=== PATIENT | female | born 1985 | race Caucasian/White ===

== ENCOUNTER → 2024-05-14 10:12 | Outpatient (REF) | payer OTHER, SELFPAY | LOC: RAD 10:12 | PROVIDERS: ATTENDING PHYSICIAN Nurse Practitioner Adult Health; FAMILY PHYSICIAN Family Medicine | DX: R10.2 Pelvic and perineal pain (principal) | CPT/HCPCS: 76830; 76856 ==

== ENCOUNTER → 2024-05-16 08:15 | Outpatient (REF) | payer OTHER, SELFPAY | LOC: WDC 08:15 | PROVIDERS: ATTENDING PHYSICIAN Nurse Practitioner Adult Health; FAMILY PHYSICIAN Family Medicine | DX: Z12.31 Encounter for screening mammogram for malignant neoplasm of breast (principal) | CPT/HCPCS: 77063; 77067 ==

== ENCOUNTER → 2024-05-22 07:37 | Outpatient (REF) | payer OTHER, SELFPAY | LOC: WDC 07:37 | PROVIDERS: ATTENDING PHYSICIAN Nurse Practitioner Adult Health; FAMILY PHYSICIAN Family Medicine | DX: R92.8 Other abnormal and inconclusive findings on diagnostic imaging of breast (principal) | CPT/HCPCS: 76642 ==

== ENCOUNTER 2024-08-06 09:42 | Emergency (ER) | payer OTHER, SELFPAY ==
[2024-08-06 09:47] VITALS: BP 130/80
[2024-08-06 10:42] LABS: Urine Albumin Negative (Neg - Trace); Urine Bilirubin Negative (Negative); Urine Character Clear (Clear); Urine Color Yellow; Urine Glucose Negative (Negative); Urine Ketone Negative (Negative); Urine Leukocyte Negative (Negative); Urine Nitrite Negative (Negative); Urine Occult Blood 3+ (Negative); Urine Urobilinogen Negative (Neg - 1+)
[2024-08-06 10:47] LABS: Urine Squamous Cell 0-2 /LPF (Few); Urine White Cell 0-2 /HPF (0-5)
[2024-08-06 10:48] LABS: HCG, Urine Qualitative Screen Negative
--- NOTE | 2024-08-06 11:05 | ED.GENMED ---
History of Present Illness
General
Chief Complaint: Abdominal Pain
Source: patient
Exam Limitations: none
Time Seen by Provider: 08/06/24 10:45
History of Present Illness
History of Present Illness:
38-year-old female presents complaining of severe fairly sudden lower abdominal/pelvic pain that started this morning upon awakening. She had a similar episode at the beginning of this month that lasted 15 minutes and went away. Today the pain was
so severe she tried to go to the bath and had a syncopal episode. Her noticed this and found her clammy and sweaty and pale. She states since then the pelvic pain has improved. She also notes she has not had a bowel movement in 3 to 4
days. She typically goes about twice a week. Of note, patient had an ultrasound in May of this year which showed a 4.7 cm left-sided ovarian cyst. She did follow-up with gynecology they said no further testing was indicated at this point. Last
menstrual cycle was 3 weeks ago. No other complaints at this time
Past History
Past History
ED Past Medical History: None
ED Past Surgical History: None
Social History
Personal: Single
Living: with family
Employment: Employed
Phy Exam
Physical Exam
Physical Exam:
General: Well-appearing female no acute respiratory distress
HEENT: Normocephalic atraumatic
Heart: Regular rate and rhythm no murmurs
Lungs: Clear no wheeze
Abdomen is soft mildly tender to the suprapubic region no guarding or rebound normal bowel sounds no costovertebral angle tenderness
Extremities: No cyanosis
Course
Orders/Labs/Results
Orders:
Orders
08/06/24 09:53
Electrocardiogram (*1) Urgent
Reason for Study: Syncope
EKG- Treatment ONCE
08/06/24 10:07
Test Result ONCE
08/06/24 10:23
, Urine Qualitative Screen [HCG, Urine Qualitative Screen] Urgent
Date Specimen was Collected: 08/06/24
Time Specimen was Collected: 10:07
Urinalysis Reflex To Culture Urgent
Date Specimen was Collected: 08/06/24
Time Specimen was Collected: 10:07
Urine Microscopic Reflex Cult Urgent
08/06/24 10:59
US Pelvis Only (non-obstetric) Urgent
Reason For Exam: pelvic pain
08/06/24 11:42
CT Abd/pel W Iv And Oral Contr Urgent
Comment:
Reason For Exam: lower abdominal/pelvic pain
Iohexol [Omnipaque] See Protocol PO NOW STA
08/06/24 11:49
Complete Blood Count/With Diff Urgent
08/06/24 12:55
Basic Metabolic Panel Urgent
08/06/24 15:29
Ketorolac [Toradol] 15 mg IV NOW STA
Abnormal Lab Results
08/06/24 08/06/24
10:23 12:55
Carbon Dioxide 20 L mmol/L
(22-30)
Ur Occult Blood Reflex 3+ A
(Negative)
Urine RBC 11-15 A /HPF
(0-2)
08/06/24 11:49
08/06/24 12:55
Vital Signs
Initial and Last Documented VS:
Initial Vital Signs
Temp Pulse Resp BP Pulse Ox
98.7 F 103 18 130/80 99
08/06/24 09:47 08/06/24 09:47 08/06/24 09:47 08/06/24 09:47 08/06/24 09:47
Last Documented Vital Signs
Temp Pulse Resp BP Pulse Ox
98.7 F 103 18 126/86 99
08/06/24 09:47 08/06/24 09:47 08/06/24 09:47 08/06/24 11:50 08/06/24 11:51
MDM/Problems Addressed
Differential Diagnosis Includes:
Lower abdominal/pelvic pain. There is no discharge. She is monogamous with her . Do not sexually-transmitted infection. Reviewed prior imaging studies which demonstrate a left sided ovarian cyst seen on an ultrasound in May. This
measured 4.7 cm. Concern for possible enlarging cyst or torsion given the nature of discomfort. Ultrasound pending. Will check labs and urine. If ultrasound negative or CT.
*Critical Care Note
Total Time (30-74mins, 75-104mins- exclusive of procedures): Not Applicable
Update Note
Update Note:
Ultrasound demonstrated resolution of left-sided ovarian cyst but there is a 2 cm right-sided ovarian cyst. Patient had another episode of pain after voiding and ultrasound. The pain lasted around 15 minutes and went away again. CT scan was then
ordered with oral and IV contrast. This was reviewed. There is no obvious acute finding noted on CT scan. Differential could include recently passed kidney stone versus constipation versus cystitis. There is hematuria but no obvious nitrites or
leukocytes. Patient somewhat disappointed with lack of answers however she was reassured. Recommend follow-up with gynecology
ED Attending Note
-
Portions of this chart may have been created with voice recognition software.� Occasional wrong word or��sound alike� substitutions may have occurred due to the inherent limitations of voice recognition software.
Discharge Plan
Departure
Patient Disposition: Home (Routine Discharge)
Date of Disposition: 08/06/24
Time of Disposition: 15:44
Patient with high blood pressure during this ER visit?: No
Discharge Problem:
Abdominal pain
Instructions: Abdominal Pain
Prescriptions:
No Action
norethindrone-e.estradiol-iron [] 1 EACH tablet
1 ea PO DAILY
diphenoxylate-atropine [Lomotil] 2.5-0.025 mg tablet
2 tab PO TID PRN (Reason: diarrhea) Qty: 20 0RF
Rx Instructions:
Maximum of 8mg tablets per day
Referrals:
Kike Zuniga DO [Family Provider] -
Activity Restrictions/Additional Instructions:
Stay hydrated. Use Tylenol or ibuprofen for pain. Consider using MiraLAX if you are constipated. Follow-up with gynecology.
Interventions
Interventions:
*Risk Screen - Suicide Last Done: 08/06/24 09:47
*General Assessment Last Done: 08/06/24 09:47
*Neglect/Abuse Screening Last Done: 08/06/24 09:47
ED- Fall Risk Assessment Last Done: 08/06/24 10:33
*ED COVID-19 Vaccine History Last Done: 08/06/24 10:33
WW-Jmyrxq-Infzveiers Assessment Last Done: 08/06/24 10:58
Discharge Date and Time
Print Language: MALAWIAN
[2024-08-06] MEDS: OMNIPAQUE 50 ML PO (11:49)
[2024-08-06 11:50] VITALS: BP 126/86
[2024-08-06 12:12] LABS: % Basophils 0.7 % (0-2); % Eosinophils 0.2 % (0-6); % Immature Granulocytes 0.2 % (0-0.5); % Lymphocytes 23.5 % (20.5-51.1); % Monocytes 5.6 % (1.7-9.3); % Neutrophils 69.8 % (42.2-75.2); Absolute Basophils 0.1 10^3/uL (0-0.2); Absolute Lymphocytes 1.9 10^3/uL (1.2-3.4); Absolute Monocytes 0.5 10^3/uL (0.1-0.6); Absolute Neutrophils 5.7 10^3/uL (1.4-6.5); Hematocrit 44.1 % (37.0-47.0); Hemoglobin 14.8 g/dL (12.0-16.0); Mean Corp Hgb Conc. 33.6 g/dL (33.0-37.0); Mean Corpuscular Hgb 29.7 pg (27.0-31.0); Mean Corpuscular Volume 88.6 fL (81.0-99.0); Mean Platelet Volume 10.2 fL (7.4-10.4); Nucleated Red Blood Cells % 0 %; Platelet Count 240 10^3/uL (130-400); Red Blood Cell Count 4.98 10^6/uL (4.20-5.40); Red Cell Dist. Width 14.1 % (11.5-14.5); White Blood Cell Count 8.2 10^3/uL (4.8-10.8)
[2024-08-06 14:02] LABS: Blood Urea Nitrogen 16 mg/dl (7-17); Calcium 9.6 mg/dl (8.4-10.2); Carbon Dioxide 20 mmol/L (22-30); Chloride 103 mmol/L (98-107); Glucose 92 mg/dl (70-99); Sodium 141 mmol/L (135-145); eGFR > 60.00
[2024-08-06] MEDS: TORADOL 15 MG IV (15:33)
[2024-08-06 16:02] VITALS: BP 128/78
== END 2024-08-06 16:13 | disposition home or self-care (01) ==
LOC: EMR 09:42
PROVIDERS: Physician Assistant; EMERGENCY PHYSICIAN Emergency Medicine; FAMILY PHYSICIAN Family Medicine
DX: R55 Syncope and collapse (principal); R10.30 Lower abdominal pain, unspecified; R10.2 Pelvic and perineal pain; R31.9 Hematuria, unspecified; N83.201 Unspecified ovarian cyst, right side; Z88.1 Allergy status to other antibiotic agents; Z88.2 Allergy status to sulfonamides; Z88.8 Allergy status to other drugs, medicaments and biological substances
CPT/HCPCS: 99285; 96374; 74177; 76856; 80048; 81003; 81015; 81025; 85025; 93005; Q9967

== ENCOUNTER 2024-11-18 11:32 | Emergency (ER) | payer OTHER, SELFPAY ==
[2024-11-18 11:37] VITALS: BP 132/93
--- NOTE | 2024-11-18 11:44 | ED.GENMED ---
ED Provider Triage
-
Patient seen by provider in Triage?: Seen in Triage
Attestation: A medical screening examination has been initiated by a qualified medical provider. Based on the assessment performed at this time, it has been determined that an emergent medical condition may exist and the patient has been informed
that further medical evaluation and possible additional diagnostic testing may be needed.
HPI: 38yoF here with palpitations. Feels like heart was racing x 1 hour. HR 242 in the school nurse's office. Symptoms resolved while in the parking lot. Only current complaint is fatigue. Hx of similar episodes in the past. Sees Dr Ruiz. Has had
Holter monitors in the past which have come back normal.
GENERAL: Alert , in no apparent distress
EYE: No visual abnormalities.
NECK: Trachea midline
ENT: No visible abnormalities.
LUNGS: No acute respiratory distress
NEUROLOGICAL: Alert and oriented
SKIN: Skin intact. No visible changes.
MUSCULOSKELETAL: Moving extremities normally
PSYCH: Normal and appropriate interaction.
This is a medical evaluation conducted in person to initiate diagnostic evaluation and provide initial therapeutics. Please see further documentation by the treating clinician.
Cardiac labs, magnesium, TSH, HCG, and EKG ordered.
History of Present Illness
General
Chief Complaint: Heart Rate Problem
Source: patient
Exam Limitations: none
Time Seen by Provider: 11/18/24 12:47
History of Present Illness
History of Present Illness:
38yoF with epic and past medical history presenting for evaluation of palpitations. Symptoms began about 1 hour prior to arrival. She states it felt like her heart was racing. Her heart rate was reportedly in the 240s at the school nurse's
office. Her symptoms resolved after she pulled into the parking lot of the hospital. Her only current symptom is feeling fatigued. She denies any, shortness of breath, syncope. She has had similar episodes in the past and has had multiple EKGs
and Holter monitors which have reportedly come back normal. 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
Past History
Past History
ED Past Medical History: None
ED Past Surgical History: None
Social History
Personal: Single
Living: with family
Employment: Employed
Phy Exam
General Physical Exam
General Presentation: well appearing and no apparent distress
General age: appears stated age
General Skin: warm
General Habitus: normal
General Mental: alert
ENT Exam
ENT Exam: normocephalic
Cardiovascular Exam
Cardiovascular Exam: no murmur and tachycardia
Pulmonary Exam
Pulmonary Exam: lungs clear, no respiratory distress, no rales, no crackles, no rhonchi and no wheezing
Neurological Exam
Neurological Exam: alert
[place] Coma Scale
Eye Opening: Spontaneous
Verbal Response: Oriented
Motor Response: Obeys Commands
GCS Total Score: 15
Skin Exam
Skin Exam: normal color and warm/dry
Psychiatric Exam
Psychiatric Exam: normal mood/affect
Course
Orders/Labs/Results
Orders:
Orders
11/18/24 11:32
Electrocardiogram (*1) Urgent
Reason for Study: Tachycardia
EKG- Treatment ONCE
11/18/24 11:47
Test Result ONCE
11/18/24 11:58
Complete Blood Count/With Diff Urgent
Comprehensive Metabolic Panel Urgent
HCG, Serum Qualitative Screen Urgent
Magnesium Urgent
TSH Reflex To Free T4 Urgent
Troponin I Urgent
11/18/24 11:58
11/18/24 11:58
Vital Signs
Initial and Last Documented VS:
Initial Vital Signs
Temp Pulse Resp BP Pulse Ox
98.1 F 119 16 132/93 100
11/18/24 11:37 11/18/24 11:37 11/18/24 11:37 11/18/24 11:37 11/18/24 11:37
Last Documented Vital Signs
Temp Pulse Resp BP Pulse Ox
98.1 F 117 18 123/89 100
11/18/24 11:37 11/18/24 12:45 11/18/24 12:45 11/18/24 12:45 11/18/24 12:45
MDM/Problems Addressed
Differential Diagnosis Includes:
38yoF here with palpitations x 1 hour. Heart was racing. HR up to 240 prior to arrival. Symptoms now resolved. Only current complaint is fatigue. HR 119 in triage. Remainder of vital signs are normal. She is well-appearing in no acute distress.
Exam is reassuring. Differential diagnosis includes but is not limited to: Arrhythmia, electrolyte abnormality, thyroid dysfunction
Patient was initially seen in the triage area and lab work/EKG were obtained. While she was still in the waiting room, she requested to be discharged. Patient was able to obtain an appointment with the waiter/waitress cabin class at 1 PM today and would like to
be discharged prior to this so that she may make this appointment. She denies any recurrent symptoms. Lab work overall unremarkable including normal electrolytes, TSH, and troponin. Patient was discharged directly to the cardiology office and
left in stable condition.
*EKG
Interpreted by ED Provider?: Yes
EKG Intrepretation Date: 11/18/24
Heart Rate: 112
Rate: tachycardiac
Rhythm: sinus
[place]: normal axis
Interval: normal interval
QRS Pattern: normal QRS
Ischemia: no ischemia
*Critical Care Note
Total Time (30-74mins, 75-104mins- exclusive of procedures): Not Applicable
ED Attending Note
-
Portions of this chart may have been created with voice recognition software.� Occasional wrong word or��sound alike� substitutions may have occurred due to the inherent limitations of voice recognition software.
Discharge Plan
Departure
Patient Disposition: Home (Routine Discharge)
Date of Disposition: 11/18/24
Time of Disposition: 12:47
Patient with high blood pressure during this ER visit?: No
Discharge Problem:
Heart palpitations, Sinus tachycardia
Instructions: Palpitations (DC)
Prescriptions:
No Action
norethindrone-e.estradiol-iron [] 1 EACH tablet
1 ea PO DAILY
diphenoxylate-atropine [Lomotil] 2.5-0.025 mg tablet
2 tab PO TID PRN (Reason: diarrhea) Qty: 20 0RF
Rx Instructions:
Maximum of 8mg tablets per day
Activity Restrictions/Additional Instructions:
Go directly to the waiter/waitress cabin class office after discharge as scheduled. Return to the ER with any new or worsening symptoms.
Interventions
Interventions:
*Risk Screen - Suicide Last Done: 11/18/24 11:37
*Neglect/Abuse Screening Last Done: 11/18/24 11:37
*Nursing Disposition Last Done: 11/18/24 12:58
Discharge Date and Time
Discharge Date/Time: 11/18/24 12:58
Print Language: INDONESIAN
[2024-11-18 12:10] LABS: % Basophils 0.8 % (0-2); % Eosinophils 0.5 % (0-6); % Immature Granulocytes 0.2 % (0-0.5); % Lymphocytes 20.5 % (20.5-51.1); % Monocytes 5.2 % (1.7-9.3); % Neutrophils 72.8 % (42.2-75.2); Absolute Basophils 0.1 10^3/uL (0-0.2); Absolute Lymphocytes 1.8 10^3/uL (1.2-3.4); Absolute Monocytes 0.5 10^3/uL (0.1-0.6); Absolute Neutrophils 6.3 10^3/uL (1.4-6.5); Hematocrit 43.2 % (37.0-47.0); Hemoglobin 14.4 g/dL (12.0-16.0); Mean Corp Hgb Conc. 33.3 g/dL (33.0-37.0); Mean Corpuscular Hgb 30.2 pg (27.0-31.0); Mean Corpuscular Volume 90.6 fL (81.0-99.0); Mean Platelet Volume 9.8 fL (7.4-10.4); Nucleated Red Blood Cells % 0 %; Platelet Count 212 10^3/uL (130-400); Red Blood Cell Count 4.77 10^6/uL (4.20-5.40); Red Cell Dist. Width 14.2 % (11.5-14.5); White Blood Cell Count 8.7 10^3/uL (4.8-10.8)
[2024-11-18 12:32] LABS: HCG, Serum Qualitative Screen Negative
[2024-11-18 12:37] LABS: ALT (SGPT) 20 U/L (0-35); AST (SGOT) 28 U/L (14-36); Alkaline Phosphatase 41 U/L (38-126); Blood Urea Nitrogen 16 mg/dl (7-17); Calcium 9.6 mg/dl (8.4-10.2); Carbon Dioxide 24 mmol/L (22-30); Chloride 102 mmol/L (98-107); Glucose 95 mg/dl (70-99); Magnesium 1.8 mg/dl (1.6-2.3); Potassium 3.9 mmol/L (3.5-5.1); Sodium 141 mmol/L (135-145); Total Bilirubin 0.8 mg/dl (0.2-1.3); eGFR > 60.00
[2024-11-18 12:41] LABS: Troponin I < 0.012 ng/ml
[2024-11-18 12:45] VITALS: BP 123/89
[2024-11-18 13:00] LABS: TSH Reflex To Free T4 1.51 uIU/ml (0.47-4.68)
== END 2024-11-18 12:58 | disposition home or self-care (01) ==
LOC: EMR 11:32
PROVIDERS: Physician Assistant; EMERGENCY PHYSICIAN Emergency Medicine; FAMILY PHYSICIAN Family Medicine
DX: R00.2 Palpitations (principal); R00.0 Tachycardia, unspecified; R53.83 Other fatigue; Z88.1 Allergy status to other antibiotic agents; Z88.2 Allergy status to sulfonamides; Z88.8 Allergy status to other drugs, medicaments and biological substances
CPT/HCPCS: 99283; 80053; 83735; 84443; 84484; 84703; 85025; 93005

== ENCOUNTER → 2025-06-10 08:26 | Outpatient (REF) | payer OTHER, SELFPAY | LOC: WDC 08:26 | PROVIDERS: ATTENDING PHYSICIAN Nurse Practitioner Adult Health; FAMILY PHYSICIAN Family Medicine | DX: Z12.31 Encounter for screening mammogram for malignant neoplasm of breast (principal) | CPT/HCPCS: 77063; 77067 ==

== ENCOUNTER → 2025-08-25 12:54 | Outpatient (REF) | payer OTHER, SELFPAY | LOC: RCS 12:54 | PROVIDERS: ATTENDING PHYSICIAN Internal Medicine Cardiovascular Disease; FAMILY PHYSICIAN Nurse Practitioner Adult Health | DX: R00.2 Palpitations (principal); I47.10 Supraventricular tachycardia, unspecified | CPT/HCPCS: 93225; 93226 ==